=== PATIENT | male | born 1995 | race African-American/Black ===

== ENCOUNTER 2021-08-02 16:11 | Emergency (ER) | payer OTHER ==
[~2021-08-02] VITALS: Ht 175.3 cm; Wt 136.1 kg
[2021-08-02] MEDS ORDERED: ULTRAM 50MG50 MG PO (18:35)
== END 2021-08-02 18:50 | disposition home or self-care (01) ==
LOC: ER 16:36
DX: S93.402A Sprain of unspecified ligament of left ankle, initial encounter (principal); X50.1XXA Overexertion from prolonged static or awkward postures, initial encounter; Y93.01 Activity, walking, marching and hiking; Y99.0 Civilian activity done for income or pay; F17.210 Nicotine dependence, cigarettes, uncomplicated
CPT/HCPCS: 99283